=== PATIENT | female | born 1980 | race American Indian/Alaskan Native ===

== ENCOUNTER 2017-03-08 07:39 | Day surgery (SDC) | payer BC ==
[~2017-03-08 07:39] MED LIST: NACL 0.9% IR ONE
[2017-03-08] MEDS ORDERED: PEPCID PO NR (09:00)
[2017-03-08] MEDS ORDERED: VERSED IV NR (09:00)
--- NOTE | 2017-03-08 11:14 | Anesthesia Consultation ---
Anesthesia Consult and Med Hx Date of service: 03/08/17 - Airway Anesthetic Teeth Evaluation: Good (permanent retainers upper and lower front teeth) ROM Head & Neck: Adequate Mental/Hyoid Distance: Adequate Mallampati Class: Class II Intubation Access Assessment: Probably Good - Pulmonary Exam CTA: Yes - Cardiac Exam Cardiac Exam: RRR - Pre-Operative Health Status ASA Pre-Surgery Classification: ASA2 Proposed Anesthetic Plan: General - Pulmonary Hx Smoking: Yes (FROM 97'-07') - Cardiovascular System Hx Hypertension: No - Central Nervous System Hx Neuromuscular Disorder: No Hx Psychiatric Problems: No - Gastrointestinal Hx Gastroesophageal Reflux Disease: No - Endocrine Hx Renal Disease: No Hx Insulin Dependent Diabetes: No - Hematic Hx Anemia: No Hx Sickle Cell Disease: No - Other Systems Hx Alcohol Use: Yes (OCCA GLASS/WINE) Hx Substance Use: Yes (PRIOR MARIJUANA USE) Hx Cancer: No Hx Obesity: No
--- NOTE | 2017-03-08 11:15 | Anesthesia Day of Surgery ---
Anesthesia Day of Surgery - Day of Surgery Patient Examined: Yes Patient H&P Reviewed: Yes Patient is NPO: Yes
[2017-03-08] MEDS: NACL 0.9% 1000 ML 1,000 ML IV SCH ×2 (11:20→17:03)
[2017-03-08] MEDS ORDERED: ANCEF/STERILE WATER 2 GM/20 ML IV NR (11:30)
[2017-03-08 11:35] LABS: Basophils % (Auto) 0.8 % (0.0-1.8); Eosinophils % (Auto) 0.7 % (0.0-4.3); Hematocrit 38.4 % (30.3-42.9); Hemoglobin 12.9 gm/dl (10.1-14.3); Mean Corpuscular HGB Conc 34 % (30-34); Mean Corpuscular Hemoglobin 30 pg (28-32); Mean Corpuscular Volume 89 fl (79-97); Platelet Count 188 K/mm3 (140-440); Red Blood Count 4.32 M/mm3 (3.65-5.03); Red Cell Distribution Width 14.6 % (13.2-15.2); White Blood Count 4.9 K/mm3 (4.5-11.0)
[2017-03-08] MEDS ORDERED: NACL 0.9% IR ONE (13:02)
[2017-03-08] MEDS ORDERED: DIPRIVAN 10 MG/ML IV ONE (13:05)
[2017-03-08] MEDS ORDERED: DILAUDID ONE ×3 (13:06→16:45)
[2017-03-08] MEDS ORDERED: XYLOCAINE MPF 2% ONE (13:58)
[2017-03-08] MEDS ORDERED: NACL 0.9% 1000 ML 1,000 ML ONE (13:59)
[2017-03-08] MEDS ORDERED: NEO SYNEPHRINE/NS Syringe(OR USE) IV ONE (14:00)
[2017-03-08] MEDS ORDERED: DECADRON ONE (14:02)
[2017-03-08] MEDS ORDERED: ZOFRAN ONE (14:02)
--- NOTE | 2017-03-08 16:36 | Post Anesthesia Evaluation ---
- Post Anesthesia Evaluation Patient Participated: Yes Airway Patent: Yes Stable Respiratory Function: Yes Nausea/Vomiting: No Temp > 96.8F: Yes Pain Manageable: Yes Adequeate Hydration: Yes Anesthesia Complications: No Block Receding Appropriately: Not Applicable Patient on Ventilator: No
[2017-03-08] MEDS: DILAUDID IV PRN ×2 (16:45→16:55)
[2017-03-08 17:47] VITALS: BP 107/66
--- NOTE | 2017-03-08 18:06 | Operative Report ---
SERVICE: Plastic Surgery. PREOPERATIVE DIAGNOSIS: Macromastia. POSTOPERATIVE DIAGNOSIS: Macromastia. PROCEDURE: Bilateral reduction mammoplasty. SURGEON: Kendrick Grimes MD DIVISION SERGEANT: Rubens Ramesh CSA FINDINGS: 560 g removed from the right breast, 420 g removed from the left breast. DESCRIPTION OF PROCEDURE: The patient was brought to the operating room and placed on the table in supine position. Following administration of general anesthesia, bilateral breasts were prepped with a Betadine solution, draped in usual sterile manner. A #10 blade scalpel was used to make a circumareolar skin incision followed by epithealization of an inferior dermal pedicle. Modified Pozo pattern skin markings were incised with scalpel, deepened through subcutaneous fat and breast tissue using electrocautery. Skin flaps were raised in standard manner as was fashioning of an inferior central mound pedicle. Breasts tissue was resected and sent to pathology as specimen. Hemostasis controlled using electrocautery. Closure was performed over 10 mm flat LEMUEL drains using interrupted and running subcuticular 2-0 Monocryl sutures. Mastisol, Steri-Strips, and sterile dressings applied. The patient tolerated the procedure well and returned to recovery room in stable condition. JOB# [id number] FTW/NTS
== END 2017-03-08 07:40 | disposition home or self-care (01) ==
LOC: OR 07:39
PROVIDERS: ATTEND Plastic Surgery
DX: N62 Hypertrophy of breast (principal); F17.200 Nicotine dependence, unspecified, uncomplicated; Z98.890 Other specified postprocedural states; Z72.89 Other problems related to lifestyle
CPT/HCPCS: 19318; 36415; 81025; 85025; 88305; J0690; J1100; J1170; J2250; J2370; J2405; J2704; J7030